=== PATIENT | female | born 1990 | race African-American/Black ===

== ENCOUNTER 2019-03-07 16:05 | Emergency (ER) | payer MEDICAID, OTHER ==
--- NOTE | 2019-03-07 16:58 | EDM.PDOC ---
ED HPI GENERAL MEDICAL PROBLEM - General Chief Complaint: ENT Problem Stated Complaint: TOOTH PAIN Time Seen by Provider: 03/07/19 16:40 Source of Information: Reports: Patient, Family History Limitations: Reports: No Limitations - History of Present Illness INITIAL COMMENTS - FREE TEXT/NARRATIVE: 28-year-old female, 2 weeks ago had root canals performed in [place]. She had both of them done on the right side, one upper molar, one lower molar. She has been having some significant persistent pain since that time but it is slowly improved, however over the last 48 hours she has developed intense neuralgia of the facial nerve on the right side that extends up into the zygomatic area and temporal area of the face. No redness or inflammation, no fevers or chills. She' s been taking a regular dose of ibuprofen without relief. She has no history of chronic pain, pain medication prescriptions. She is otherwise healthy. Duration: Day(s): (Intense pain for the last 2 days) Location: Reports: Face (Right side) right face Pain Score (Numeric/FACES): 10 - Related Data Allergies Allergy/AdvReac Type Severity Reaction Status Date / Time No Known Allergies Allergy Verified 03/07/19 16:31 Home Meds: Home Meds NK [No Known Home Meds] 03/07/19 [History] Past Medical History - Past Health History Medical/Surgical History: Denies Medical/Surgical History Social & Family History - Tobacco Use Smoking Status *Q: Never Smoker - Recreational Drug Use Recreational Drug Use: No ED ROS ENT - Review of Systems Review Of Systems: See Below Constitutional: Denies: Fever, Chills Respiratory: Denies: Shortness of Breath Cardiovascular: Denies: Chest Pain GI/Abdominal: Denies: Abdominal Pain, Nausea, Vomiting Neurological: Reports: Other (Sharp neuropathic pain on the right face) ED EXAM, ENT - Physical Exam Exam: See Below Exam Limited By: No Limitations General Appearance: Alert, No Apparent Distress (Looks uncomfortable but not distressed) Mouth/Throat: Normal Inspection (No gum inflammation or mucosal inflammation) Head: Atraumatic Neck: No: Lymphadenopathy (R), Lymphadenopathy (L) Respiratory/Chest: No Respiratory Distress Neurological: Alert, Oriented Psychiatric: Normal Affect, Normal Mood Skin: Warm, Dry Course - Vital Signs Last Recorded V/S: Last Vital Signs Temp 98.0 F 03/07/19 16:26 Pulse 85 07/26/19 16:26 Resp 20 03/07/19 16:26 BP 146/105 H 03/07/19 16:26 Pulse Ox 99 03/07/19 16:26 - Re-Assessments/Exams Free Text/Narrative Re-Assessment/Exam: 03/07/19 16:57 She will be started on penicillin 500 4 times a day for the next 5 days to cover for any infection although there is no objective findings of infection. An abscess is possible. She'll also be given 20 hydrocodone to use for extra pain control until she can see her dentist on Sunday which is already scheduled. She'll continue with ibuprofen. Departure - Departure Time of Disposition: 17:05 Disposition: Home, Self-Care 01 Clinical Impression: Facial neuralgia - Discharge Information Instructions: Neuropathic Pain Referrals: PCP,None [Primary Care Provider] - Forms: ED Department Discharge Care Plan Goals: Continue ibuprofen, use stronger pain medication as prescribed and take antibiotic as directed. Recheck on Sunday as scheduled, recheck sooner if worsening despite treatment.
== END 2019-03-07 17:06 | disposition home or self-care (01) ==
LOC: JP.ED 16:05
DX: G50.0 Trigeminal neuralgia (principal)
CPT/HCPCS: 99282